=== PATIENT | female | born 1940 | race Caucasian/White ===

== ENCOUNTER → 2017-03-22 | Outpatient (CLI) | payer MEDICARE ==
[2014-12-22 10:32] VITALS: BMI 28.5
[~2017-03-22] MED LIST: ALPR-445 PO; ASPI81TA94 PO; ATOR40TA24 PO; AZIT-17 PO; BIOT1TAB12 PO; BLOO1STR16 MC; CALC-597 PO; CARV12.577 PO; CARV6.2574 PO; CEFU500T10 PO; CHOL200038 PO; CLOP75TA43 PO; DIPH0.5D12 IM; FURO-45 PO; FURO-47 PO; Furosemide PO; GLY5 PO; HYDR12.556 PO; INSU100I28 SQ; INSU100I30 SQ; INSU100I30 SUBQ; LEVO-85 PO; LISI-362 PO; LISI20TA29 PO; LISI5TAB25 PO; Lisinopril PO; METF-410 PO; METO25TA23 PO; MULT-820 PO; NEED-396 MC; NYST15PO12 TP; OMEG-11 PO; PANT40TA65 PO; PNEU0.5D3 IM; POLY17PO25 PO; Pantoprazole Sod PO; Polyethylene Glycol PO; SPIR25TA78 PO; Spironolactone PO; TAMS0.4C25 PO; TOLT4CAP13 PO; VITA-197 PO
[2017-03-22 09:12] LABS: LDL CHOLESTEROL 76 mg/dl
== END ==
LOC: LAB 08:44
PROVIDERS: ATTEND Internal Medicine
DX: E78.2 Mixed hyperlipidemia (principal); E11.65 Type 2 diabetes mellitus with hyperglycemia
CPT/HCPCS: 36415; 82040; 82247; 82310; 82374; 82435; 82465; 82565; 82947; 83036; 83718; 84075; 84132; 84155; 84295; 84450; 84460; 84478; 84520

== ENCOUNTER 2017-05-01 09:54 | Emergency (ER) | payer MEDICARE ==
[2014-12-22 10:32] VITALS: Wt 86.2 kg
--- NOTE | 2017-05-01 10:03 | ER Report ---
History and Physical Time Seen By MD: 10:02 HPI/ROS CHIEF COMPLAINT: Chest pain HISTORY OF PRESENT ILLNESS: Patient is a 76-year-old female who is brought to the emergency department with her for evaluation of anginal equivalent type symptoms that occurred last night but have resolved this morning. Patient is currently symptom and pain free at this time. She denies any chest pain or pressure she denies shortness of breath. She denies abdominal pain she denies fevers or chills. She denies any neck or shoulder pain currently. Patient last evening developed some right shoulder pain that radiated into the neck this is similar to prior symptoms the patient had over the past years, which apparently is her anginal equivalent. Patient was experiencing similar symptoms and in 2014 she ended up having a four-vessel bypass. Had non-ST elevation MIs in the past. She currently is going to cardiac rehabilitation therapy. Again at this time she denies any symptoms but because of the symptoms last evening patient presents for evaluation to the emergency department at this time. REVIEW OF SYSTEMS: Constitutional: No fever, no chills. Eyes: No discharge. ENT: No sore throat. Cardiovascular: No chest pain, no palpitations. Respiratory: No cough, no shortness of breath. Gastrointestinal: No abdominal pain, no vomiting. Genitourinary: No hematuria. Musculoskeletal: Patient with right shoulder pain that radiates to the neck currently the symptoms are not present Skin: No rashes. Neurological: No headache. Allergies: Coded Allergies: No Known Drug Allergies (Unverified , 05/01/17) Home Meds Active Scripts Insulin Glargine,Hum.rec.anlog (LANTUS SOLOSTAR) 100 Unit/1 Ml Insuln.pen, 48 UNIT SQ QDAY, #20 EA 3 Refills Use 27 units in the morning and 21 units in the evening Prov:YENNY BRIDGES MD 03/30/17 Atorvastatin Calcium (LIPITOR) 40 Mg Tablet, 1 TAB PO QDAY, #90 TAB 4 Refills 1 po q d, 5 days per week, skip 2 days Prov:YENNY BRIDGES MD 11/17/16 Furosemide (FUROSEMIDE) 40 Mg Tablet, 1 TAB PO DAILY, #90 TAB 3 Refills Prov:YENNY BRIDGES MD 09/29/16 Blood Sugar Diagnostic (FREESTYLE LITE TEST STRIPS) 1 Each Strip, 1 EACH MC TID , #250 STRIP 3 Refills Prov:YENNY BRIDGES MD 09/15/16 [place], Insulin Disposable (NOVOFINE) 1 Each Dis.needle, EACH MC QID, #1 11 Refills Use four times daily when injecting Lantus and Humalog Prov:STAN GARCIA PHARMJackie 09/02/16 Insulin Lispro 3 Ml Prefilled (HUMALOG 3 ML PEN) 100 Unit/1 Ml Insuln.pen, 5 UNIT SQ BIDLS, #1 BOX 5 Refills Prov:STAN GARCIA PHARMD 09/02/16 Tolterodine Tartrate (DETROL LA) 4 Mg Cap.er.24h, 1 CAP PO QDAY, #30 CAP 5 Refills Prov:YENNY BRIDGES MD 10/30/15 Lisinopril (LISINOPRIL) 20 Mg Tablet, 1 TAB PO QDAY, #90 TAB 4 Refills Prov:YENNY BRIDGES MD 07/26/15 Reported Medications Carvedilol (COREG) 12.5 Mg Tablet, 1 TAB PO BID, TAB 07/26/15 Aspirin (ASPIRIN) 81 Mg Tab.chew, 1 TAB PO QDAY, TAB.CHEW 01/09/15 Cholecalciferol (Vitamin D3) (VITAMIN D3) 2,000 Unit Tablet, 1 CAP PO QDAY 11/10/13 Calcium Carbonate/Vitamin D3 (CALCIUM 600 + VIT D TABLET) 1 Each Tablet, 1 TAB PO DAILY 11/10/13 Multivitamin (MULTIVITAMINS) 1 Each Tablet, 1 TAB PO QDAY 11/10/13 Discontinued Scripts Alprazolam 0.25 Mg (ALPRAZOLAM 0.25 MG) 0.25 Mg Tablet, 1 TAB PO TID Y for anxiety prior to flying, #4 TAB Prov:YENNY BRIDGES MD 10/30/15 Past Medical/Surgical History Pmhx: DM, cad, mi, htn, pcos, adrenal insufficiency, cystic fibrosis, hyperlipid , neruopathy, renal failure, MS Pshx; Cabg, hyster Hx Smoking: Yes Smoking Status: Former Smoker Exposure to Second Hand Smoke?: Yes Hx Substance Use Disorder: No Hx Alcohol Use: Yes Constitutional Vital Sign - Last 24 Hours 05/01/17 05/01/17 05/01/17 05/01/17 10:00 10:00 10:24 10:30 Temp 98.7 Pulse 73 73 Resp 17 25 B/P (MAP) 177/63 (101) 177/63 171/71 (104) Pulse Ox 90 92 O2 Delivery Room Air 05/01/17 05/01/17 05/01/17 05/01/17 10:54 11:00 11:30 11:35 Pulse 82 70 Resp 13 12 B/P (MAP) 184/62 (102) 168/70 (102) Pulse Ox 90 05/01/17 05/01/17 05/01/17 05/01/17 12:00 12:05 12:30 12:35 Pulse ??? 64 Resp 11 28 B/P (MAP) 119/51 (73) 136/59 (84) Pulse Ox 85 05/01/17 05/01/17 13:01 13:05 Pulse 68 Resp 10 B/P (MAP) 161/62 (95) Pulse Ox 90 Physical Exam General/Constitutional: Patient is awake, alert, nontoxic and in no acute respiratory distress. Head: Normocephalic and atraumatic. Eyes: Conjunctival clear, Pupils are equal and reactive to light. Sclera are clear and anicteric. Ears:External canals are clear. Tympanic membranes are clear with normal landmarks and light reflex. Nares: No rhinorrhea or bleeding. Turbinates are pink and moist. Oropharyngeal: Mucous membranes are moist. There is no pharyngeal erythema or exudate. Neck: Supple, no adenopathy. Cardiovascular: Heart is regular rate and rhythm without audible murmurs, rubs or gallops. Pulmonary: Lungs are clear to auscultation bilaterally. There are no wheezes, rales, or rhonchi. Chest rise is symmetrical Abdomen: Soft, nontender, no guarding or peritoneal signs. Extremities: No gross deformities, No peripheral cyanosis. Able to move all 4 extremities. Neuro: Alert and oriented X3, Skin: No rashes, skin is warm dry and well perfused. Medical Decision Making Data Points Result Diagram: 05/01/17 1003 05/01/17 1003 Laboratory Hematology Test 05/01/17 10:03 05/01/17 13:00 Red Blood Count 5.56 M/uL (4.17-5.56) Mean Corpuscular Volume 88.1 fL (80.0-96.0) Mean Corpuscular Hemoglobin 29.8 pg (26.0-33.0) Mean Corpuscular Hemoglobin Concent 33.9 g/dL (32.0-36.0) Red Cell Distribution Width 14.4 % (11.5-14.5) Mean Platelet Volume 9.4 fL (7.2-11.1) Neutrophils (%) (Auto) 75.2 % (39.4-72.5) Lymphocytes (%) (Auto) 12.7 % (17.6-49.6) Monocytes (%) (Auto) 9.6 % (4.1-12.4) Eosinophils (%) (Auto) 1.9 % (0.4-6.7) Basophils (%) (Auto) 0.6 % (0.3-1.4) Nucleated RBC Relative Count (auto) 0.0 /100WBC Neutrophils # (Auto) 7.0 K/uL (2.0-7.4) Lymphocytes # (Auto) 1.2 K/uL (1.3-3.6) Monocytes # (Auto) 0.9 K/uL (0.3-1.0) Eosinophils # (Auto) 0.2 K/uL (0.0-0.5) Basophils # (Auto) 0.1 K/uL (0.0-0.1) Nucleated RBC Absolute Count (auto) 0.00 K/uL Prothrombin Time 13.0 seconds (12.0-14.4) Prothromb Time International Ratio 0.98 Activated Partial Thromboplast Time 29 seconds (23-35) Sodium Level 140 mmol/L (137-145) Potassium Level 3.9 mmol/L (3.5-5.0) Chloride Level 99 mmol/L (98-107) Carbon Dioxide Level 28 mmol/L (22-31) Blood Urea Nitrogen 21 mg/dl (7-18) Creatinine 1.00 mg/dl (0.52-1.04) Glomerular Filtration Rate Calc 53.9 Random Glucose 174 mg/dl (75-110) Calcium Level 9.4 mg/dl (8.4-10.2) Total Bilirubin 0.8 mg/dl (0.2-1.3) Aspartate Amino Transf (AST/SGOT) 22 U/L (0-35) Alanine Aminotransferase (ALT/SGPT) 41 U/L (0-56) Alkaline Phosphatase 103 U/L (0-126) B-Type Natriuretic Peptide 325 pg/ml (0-100) Total Protein 7.5 gm/dl (6.3-8.2) Albumin 4.2 g/dl (3.5-5.0) Troponin I 0.017 ng/ml Chemistry Test 05/01/17 10:03 05/01/17 13:00 White Blood Count 9.3 k/uL (4.5-11.0) Red Blood Count 5.56 M/uL (4.17-5.56) Hemoglobin 16.6 g/dL (12.0-16.0) Hematocrit 49.0 % (34.0-47.0) Mean Corpuscular Volume 88.1 fL (80.0-96.0) Mean Corpuscular Hemoglobin 29.8 pg (26.0-33.0) Mean Corpuscular Hemoglobin Concent 33.9 g/dL (32.0-36.0) Red Cell Distribution Width 14.4 % (11.5-14.5) Platelet Count 157 K/uL (150-450) Mean Platelet Volume 9.4 fL (7.2-11.1) Neutrophils (%) (Auto) 75.2 % (39.4-72.5) Lymphocytes (%) (Auto) 12.7 % (17.6-49.6) Monocytes (%) (Auto) 9.6 % (4.1-12.4) Eosinophils (%) (Auto) 1.9 % (0.4-6.7) Basophils (%) (Auto) 0.6 % (0.3-1.4) Nucleated RBC Relative Count (auto) 0.0 /100WBC Neutrophils # (Auto) 7.0 K/uL (2.0-7.4) Lymphocytes # (Auto) 1.2 K/uL (1.3-3.6) Monocytes # (Auto) 0.9 K/uL (0.3-1.0) Eosinophils # (Auto) 0.2 K/uL (0.0-0.5) Basophils # (Auto) 0.1 K/uL (0.0-0.1) Nucleated RBC Absolute Count (auto) 0.00 K/uL Prothrombin Time 13.0 seconds (12.0-14.4) Prothromb Time International Ratio 0.98 Activated Partial Thromboplast Time 29 seconds (23-35) Glomerular Filtration Rate Calc 53.9 Calcium Level 9.4 mg/dl (8.4-10.2) Total Bilirubin 0.8 mg/dl (0.2-1.3) Aspartate Amino Transf (AST/SGOT) 22 U/L (0-35) Alanine Aminotransferase (ALT/SGPT) 41 U/L (0-56) Alkaline Phosphatase 103 U/L (0-126) B-Type Natriuretic Peptide 325 pg/ml (0-100) Total Protein 7.5 gm/dl (6.3-8.2) Albumin 4.2 g/dl (3.5-5.0) Troponin I 0.017 ng/ml Coagulation Test 05/01/17 10:03 Prothrombin Time 13.0 seconds Prothromb Time International Ratio 0.98 Activated Partial Thromboplast Time 29 seconds EKG/Imaging EKG Interpretation EKG shows normal sinus rhythm with ventricular rate of 74 bpm. There is some ST segment depression and T-wave abnormality in the lateral leads 1, aVL V5 and 6 there is no evidence of ST elevation. This was compared to an EKG from 2016 which shows no appreciable changes. Monitor Interpretation: Normal Sinus Rhythm ED Course/Re-evaluation Clinical Indication for ER IV: Hydration, IV Access ED Course 05/01/2017 10:27:47 am plan at this time will be cardiac workup including a BNP. Patient is symptom-free initial EKG does show some ST segment depression and T-wave abnormalities in 1, aVL, V5 and 6 however when compared to prior EKG this does not appear to be changed. Re-evaluation 05/01/2017 1:32:28 pm repeat enzyme test still remains negative. Plan will be disposition to home Decision to Disposition Date: May 01, 2017 Decision to Disposition Time: 13:32 Depart Departure Latest Vital Signs Vital Signs Date Time Temp Pulse Resp B/P (MAP) Pulse Ox O2 Delivery O2 Flow Rate FiO2 05/01/17 13:05 68 10 90 05/01/17 13:01 161/62 (95) 05/01/17 10:00 98.7 Room Air Impression: Primary Impression: Non-cardiac chest pain Condition: Improved Disposition: HOME OR SELF-CARE Referrals: YENNY BRIDGES MD (PCP) 1 Week Patient Instructions: Noncardiac Chest Pain (DC) Additional Instructions: Schedule follow-up with her primary care provider within the next week. Return to the emergency department if you develop again symptoms such as chest pain or pressure with or without shortness of breath pain into the back or pain into the shoulders or neck. CONRAD MACIAS MD May 01, 2017 10:03
[2017-05-01] MEDS ORDERED: ASPIRIN 81 MG CHEW PO ONE (10:05)
[2017-05-01 10:13] LABS: PLATELET COUNT, AUTOMATED 157 K/uL (150-450)
--- NOTE | 2017-05-01 10:19 | EKG ---
[place] [facility] [place] NAME: HARSH PANIAGUA : [id number] MR: [id number] V: [id number] EXAM DATE: ORDERING PHYSICIAN: CONRAD MACIAS TECHNOLOGIST: ROBERTO Garnett Reason : CHEST PAIN Blood Pressure : / mmHG Vent. Rate : 074 BPM Atrial Rate : 074 BPM P-R Int : 146 ms QRS Dur : 096 ms QT Int : 418 ms P-R-T Axes : 061 052 102 degrees QTc Int : 463 ms Normal sinus rhythm Possible Left atrial enlargement ST and T wave abnormality, consider lateral ischemia Prolonged QT Abnormal ECG When compared with ECG of 06-APR-2016 16:15, premature ventricular complexes are no longer present Nonspecific T wave abnormality no longer evident in Anterior leads Confirmed by SANAZ RODRIGUEZ ([id number]) on 05/01/2017 3:31:13 PM Referred By: GILBERTO Confirmed By:SANAZ RODRIGEUZ
[2017-05-01 10:22] LABS: INR 0.98
[2017-05-01] MEDS ORDERED: FUROSEMIDE 20 MG/2 ML VIAL IVP ONE (10:40)
--- NOTE | 2017-05-01 11:27 | RADIOLOGY IMAGING REPORT ---
FACILITY: [facility] - [place] PATIENT NAME: Estefania Lopez : 1940 MR: [id number] V: [id number] EXAM DATE: ORDERING PHYSICIAN: CONRAD MACIAS TECHNOLOGIST: Location: [facility] [place] Patient: Estefania Lopez : 1940 Visit/Account:[id number] Date of Sevice: 05/01/2017 CHEST SINGLE AP Indication: Chest pain. Comparison: December 21, 2014 Findings: Heart size within normal limits. There is no focal infiltrate or lobar consolidation. No pneumothorax or pleural effusion. IMPRESSION: 1. No acute cardiopulmonary process. Report Dictated By: Jung Flores MD at 05/01/2017 11:23 AM Report E-Signed By: Jung Flores MD at 05/01/2017 11:24 AM WSN:[id number]
[2017-05-01 13:01] VITALS: BP 161/62
== END 2017-05-01 13:45 | disposition home or self-care (01) ==
LOC: ER 09:57
DX: R07.89 Other chest pain (principal); I25.2 Old myocardial infarction; Z95.1 Presence of aortocoronary bypass graft; E11.9 Type 2 diabetes mellitus without complications; I25.10 Atherosclerotic heart disease of native coronary artery without angina pectoris; I10 Essential (primary) hypertension; E28.2 Polycystic ovarian syndrome; E84.9 Cystic fibrosis, unspecified; E78.5 Hyperlipidemia, unspecified; E11.40 Type 2 diabetes mellitus with diabetic neuropathy, unspecified; G35 Multiple sclerosis; Z87.891 Personal history of nicotine dependence; Z79.4 Long term (current) use of insulin
CPT/HCPCS: 36415; 71045; 83880; 84484; 85025; 85610; 85730; 93005; 96374; 99284; A9270; J1940; 82040; 82247; 82310; 82374; 82435; 82565; 82947; 84075; 84132; 84155; 84295; 84450; 84460; 84520

== ENCOUNTER → 2017-05-28 | Outpatient (CLI) | payer MEDICARE ==
[2014-12-22 10:32] VITALS: BMI 28.5
== END ==
LOC: LAB 10:32
PROVIDERS: ATTEND Pharmacist Pharmacotherapy
DX: E11.59 Type 2 diabetes mellitus with other circulatory complications (principal)
CPT/HCPCS: 36415; 83036

== ENCOUNTER → 2017-06-04 | Outpatient (CLI) | payer MEDICARE ==
[2014-12-22 10:32] VITALS: BMI 28.5
== END ==
LOC: LAB 08:41
PROVIDERS: ATTEND Internal Medicine
DX: I25.810 Atherosclerosis of coronary artery bypass graft(s) without angina pectoris (principal); I77.9 Disorder of arteries and arterioles, unspecified; I50.22 Chronic systolic (congestive) heart failure; I10 Essential (primary) hypertension; E11.9 Type 2 diabetes mellitus without complications; Z79.4 Long term (current) use of insulin
CPT/HCPCS: 36415; 82040; 82247; 82310; 82374; 82435; 82465; 82565; 82947; 83718; 84075; 84132; 84155; 84295; 84450; 84460; 84478; 84520

== ENCOUNTER → 2017-07-27 | Outpatient (CLI) | payer MEDICARE ==
[2014-12-22 10:32] VITALS: BMI 28.5
[~2017-07-27] MED LIST changes: -METF-410 PO; +METF-411 PO
== END ==
LOC: LAB 08:23
PROVIDERS: ATTEND Internal Medicine
DX: I25.810 Atherosclerosis of coronary artery bypass graft(s) without angina pectoris (principal)
CPT/HCPCS: 36415; 82040; 82247; 82310; 82374; 82435; 82465; 82565; 82947; 83718; 84075; 84132; 84155; 84295; 84450; 84460; 84478; 84520

== ENCOUNTER → 2017-07-27 | Outpatient (CLI) | payer MEDICARE ==
[2014-12-22 10:32] VITALS: BMI 28.5
[~2017-07-27] MED LIST changes: +EZET10TA41 PO; +OXYGENHOME INH
== END ==
LOC: LAB 08:38
PROVIDERS: ATTEND Internal Medicine
DX: Z02.9 Encounter for administrative examinations, unspecified (principal)

== ENCOUNTER → 2017-09-07 | Outpatient (CLI) | payer MEDICARE ==
[2014-12-22 10:32] VITALS: BMI 28.5
--- NOTE | 2017-09-07 10:22 | RADIOLOGY IMAGING REPORT ---
FACILITY: [facility] - [place] PATIENT NAME: Estefania Lopez : 1940 MR: [id number] V: [id number] EXAM DATE: ORDERING PHYSICIAN: SHARON VASQUEZ TECHNOLOGIST: Location: [facility] [place] Patient: Estefania Lopez : 1940 Visit/Account:[id number] Date of Sevice: 09/07/2017 ADDENDUM #1 Incidentally noted are multiple bilateral thyroid nodules for which thyroid ultrasound may be helpful . Report Dictated By: Yessi Miller MD at 09/07/2017 1:32 PM Report E-Signed By: Yessi Miller MD at 09/07/2017 1:32 PM ORIGINAL REPORT CAROTID HISTORY: Carotid disease COMPARISON: None. FINDINGS: Grayscale, duplex and color Doppler interrogation of the extracranial carotid and vertebral arteries was performed bilateral. On the right, peak systolic velocities within the common and internal carotid arteries are 127 and 10 5 cm/sec respectively. There are small to medium sized scattered hard plaques identified in the righ t common carotid artery. There is a small amount of hard and soft plaque right carotid bulb.. Anteg rade flow within the common, internal and external carotid arteries as well as vertebral artery. ICA/ CCA ratio 0.8. On the left, peak systolic velocities within the common and internal carotid arteries are 111 and 174 cm/sec respectively. Several small calcified plaques identified in the left common carotid artery. There is a moderate amount of hard and soft plaque at the left carotid bulb extending into the proxi mal left internal carotid artery.. Antegrade flow within the common, internal and external carotid a rteries as well as vertebral artery. ICA/CCA ratio 1.8. IMPRESSION: Scattered plaques identified in the common carotid arteries bilaterally and a small amount of plaque at the right carotid bulb although no hemodynamically significant lesions identified in the right int ernal carotid artery. Peak systolic velocity of the right carotid bulb is mildly elevated at 132 cm/ s Moderate amount of hard and soft plaque at the left carotid bulb extending into the proximal left int ernal carotid artery consistent with a 50-69% category stenosis Velocity criteria are extrapolated from diameter data as defined by the Society of Radiologists in Ul trasound Consensus Conference Radiology 2003; 229;340-346 Report Dictated By: Yessi Miller MD at 09/07/2017 10:15 AM Report E-Signed By: Yessi Miller MD at 09/07/2017 10:19 AM WSN:[email or web address]
== END ==
LOC: US 01:25
PROVIDERS: ATTEND Internal Medicine
DX: I77.9 Disorder of arteries and arterioles, unspecified (principal); E04.2 Nontoxic multinodular goiter
CPT/HCPCS: 93880

== ENCOUNTER → 2017-11-30 | Outpatient (CLI) | payer MEDICARE ==
[2014-12-22 10:32] VITALS: BMI 28.5
[~2017-11-30] MED LIST changes: -METF-411 PO; +METF-450 PO; -SPIR25TA78 PO; +SPIR25TA80 PO
[2017-11-30 10:28] LABS: LDL CHOLESTEROL 41 mg/dl
== END ==
LOC: LAB 07:43
PROVIDERS: ATTEND Internal Medicine
DX: E11.59 Type 2 diabetes mellitus with other circulatory complications (principal); E78.2 Mixed hyperlipidemia
CPT/HCPCS: 36415; 82040; 82247; 82310; 82374; 82435; 82465; 82565; 82947; 83036; 83718; 84075; 84132; 84155; 84295; 84450; 84460; 84478; 84520

== ENCOUNTER → 2017-11-30 | Outpatient (CLI) | payer MEDICARE ==
[2014-12-22 10:32] VITALS: BMI 28.5
== END ==
LOC: LAB 07:46
PROVIDERS: ATTEND Pharmacist Pharmacotherapy
DX: Z02.9 Encounter for administrative examinations, unspecified (principal)

== ENCOUNTER → 2018-01-05 | Outpatient (CLI) | payer MEDICARE ==
[2014-12-22 10:32] VITALS: BMI 28.5
[2018-01-05 10:23] LABS: LDL CHOLESTEROL 36 mg/dl
== END ==
LOC: LAB 09:01
PROVIDERS: ATTEND Internal Medicine
DX: I25.810 Atherosclerosis of coronary artery bypass graft(s) without angina pectoris (principal)
CPT/HCPCS: 36415; 82040; 82247; 82310; 82374; 82435; 82465; 82565; 82947; 83718; 84075; 84132; 84155; 84295; 84450; 84460; 84478; 84520

== ENCOUNTER → 2018-03-22 | Outpatient (CLI) | payer MEDICARE ==
[2014-12-22 10:32] VITALS: BMI 28.5
[2018-03-22 09:28] LABS: LDL CHOLESTEROL 59 mg/dl
== END ==
LOC: LAB 08:50
PROVIDERS: ATTEND Pharmacist Pharmacotherapy
DX: E11.59 Type 2 diabetes mellitus with other circulatory complications (principal); E78.2 Mixed hyperlipidemia
CPT/HCPCS: 36415; 82040; 82247; 82310; 82374; 82435; 82465; 82565; 82947; 83036; 83718; 84075; 84132; 84155; 84295; 84450; 84460; 84478; 84520

== ENCOUNTER → 2018-04-25 | Outpatient (CLI) | payer MEDICARE ==
[2014-12-22 10:32] VITALS: BMI 28.5
== END ==
LOC: AMB 16:53
PROVIDERS: ATTEND Nurse Practitioner
DX: E16.2 Hypoglycemia, unspecified (principal); R53.1 Weakness
CPT/HCPCS: A0998

== ENCOUNTER → 2018-05-09 | Outpatient (CLI) | payer MEDICARE ==
[2014-12-22 10:32] VITALS: BMI 28.5
[2018-05-09 08:58] LABS: INR 0.97
== END ==
LOC: LAB 08:34
PROVIDERS: ATTEND Pharmacist Pharmacotherapy
DX: Z51.81 Encounter for therapeutic drug level monitoring (principal); Z79.01 Long term (current) use of anticoagulants
CPT/HCPCS: 36415; 85610

== ENCOUNTER → 2018-05-10 | Outpatient (CLI) | payer MEDICARE ==
[2014-12-22 10:32] VITALS: BMI 28.5
== END ==
LOC: LAB 08:43
PROVIDERS: ATTEND Pharmacist Pharmacotherapy
DX: E11.9 Type 2 diabetes mellitus without complications (principal); Z79.4 Long term (current) use of insulin
CPT/HCPCS: 36415; 83036

== ENCOUNTER → 2018-06-07 | Outpatient (CLI) | payer MEDICARE ==
[2014-12-22 10:32] VITALS: BMI 28.5
[~2018-06-07] MED LIST changes: +CHOL100052 PO; +CYA1000 PO
[2018-06-07 12:05] LABS: PLATELET COUNT, AUTOMATED 183 K/uL (150-450)
== END ==
LOC: LAB 11:38
PROVIDERS: ATTEND Emergency Medicine
DX: G35 Multiple sclerosis (principal); R35.0 Frequency of micturition
CPT/HCPCS: 36415; 81001; 82306; 82607; 85025; 87088

== ENCOUNTER → 2018-07-25 | Outpatient (CLI) | payer MEDICARE ==
[2014-12-22 10:32] VITALS: BMI 28.5
[~2018-07-25] MED LIST changes: -DIPH0.5D12 IM; +DIPH0.5S2 IM; +SULF-198 PO
== END ==
LOC: LAB 14:15
PROVIDERS: ATTEND Emergency Medicine
DX: E11.9 Type 2 diabetes mellitus without complications (principal)
CPT/HCPCS: 36415; 83036

== ENCOUNTER 2018-08-22 17:13 | Emergency (ER) | payer MEDICARE ==
[2014-12-22 10:32] VITALS: Wt 90.7 kg
--- NOTE | 2018-08-22 17:41 | ER Report ---
History and Physical Time Seen By MD: 17:37 Hx. of Stated Complaint: BP TAKEN AROUND 4PM. REPORTS SYSTOLIC WAS OVER 200. HE GAVE DOSE OF LISINOPRIL (20MG) AT 4:30. PTS ALSO TOOK DOSE OF LISINOPRIL THIS AM HPI/ROS 78 YEAR OLD RECENT BYPASS. FOLLOWED BY CARDIOLOGY FROM [facility]. 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 TODAY NOT SYMPTOMATIC BUT HAD BP 200/P. TOOK ADDITIONAL LISINOPRIL AND BP 170/78 ON ARRIVAL Allergies: Coded Allergies: No Known Drug Allergies (Unverified , 05/01/17) Home Meds Active Scripts Sulfamethoxazole/Trimet 800-160 Mg Tab (BACTRIM DS TABLET) 1 Each Tablet, 1 TAB PO Q12H, #20 TAB Prov:MARCELO ROJAS MD 06/09/18 Insulin Lispro 100 Un/Ml Pen (HUMALOG 3 ML PEN) 100 Unit/1 Ml Insuln.pen, 5-7 UNIT SQ BIDLS, #1 BOX 1 Refill 5-7 units at lunch and supper ONLY Prov:MARCELO ROJAS MD 06/07/18 Furosemide (FUROSEMIDE) 40 Mg Tablet, 1.5-2 TAB PO QWEEK, #90 TAB 2 Refills Prov:MARCELO ROJAS MD 06/07/18 Lisinopril (LISINOPRIL) 20 Mg Tablet, 1 TAB PO QDAY, #90 TAB 0 Refills Prov:YENNY BRIDGES MD 04/18/18 Atorvastatin Calcium (LIPITOR) 40 Mg Tablet, 0.5 TAB PO QDAY, #90 TAB 4 Refills 1 po q d, 5 days per week, skip 2 days Prov:YENNY BRIDGES MD 04/05/18 Insulin Glargine 100 Un/Ml Pen (LANTUS SOLOSTAR PEN) 100 Unit/1 Ml Insuln.pen, 48 UNIT SQ QDAY, #20 EA 2 Refills Use 27 units in the morning and 21 units in the evening Prov:YENNY BRIDGES MD 01/31/18 Blood Sugar Diagnostic (FREESTYLE LITE TEST STRIPS) 1 Each Strip, 1 EACH MC TID, #300 STRIP 2 Refills Prov:YENNY BRIDGES MD 11/15/17 [place], Insulin Disposable (NOVOFINE) 1 Each Dis.needle, EACH MC QID, #1 11 Refills Use four times daily when injecting Lantus and Humalog Prov:STAN GARCIA PHARMD 09/02/16 Reported Medications Cyanocobalamin (Vitamin B-12) (VITAMIN B-12) 1,000 Mcg Tablet, 1000 MCG PO 3XW 06/07/18 Cholecalciferol (Vitamin D3) (VITAMIN D) 1,000 Unit Tablet, 1000 UNIT PO DAILY 06/07/18 Oxygen (OXYGEN) Inha, 2.5 L INH HS, L 07/29/17 Ezetimibe (ZETIA) 10 Mg Tablet, 1 TAB PO QDAY, TAB 07/29/17 Carvedilol (COREG) 12.5 Mg Tablet, 1 TAB PO BID, TAB 07/26/15 Aspirin (ASPIRIN) 81 Mg Tab.chew, 1 TAB PO QDAY, TAB.CHEW 01/09/15 Calcium Carbonate/Vitamin D3 (CALCIUM 600 + VIT D TABLET) 1 Each Tablet, 1 TAB PO DAILY 11/10/13 Multivitamin (MULTIVITAMINS) 1 Each Tablet, 1 TAB PO QDAY 11/10/13 Past Medical/Surgical History DM, HTN, OBESITY, Reviewed Nurses Notes: Yes Old Medical Records Reviewed: Yes Hx Smoking: Yes Smoking Status: Former Smoker Exposure to Second Hand Smoke?: Yes Hx Substance Use Disorder: No Hx Alcohol Use: Yes Constitutional Vital Sign - Last 24 Hours 08/22/18 08/22/18 08/22/18 08/22/18 17:13 17:24 17:25 17:30 Temp 97.7 Pulse ??? 69 Resp 18 B/P (MAP) 179/67 (104) 179/67 162/72 (102) Pulse Ox 87 O2 Delivery Room Air 08/22/18 08/22/18 08/22/18 08/22/18 17:43 17:51 18:00 18:13 Pulse 65 58 Resp 15 20 B/P (MAP) 167/133 (144) 153/64 (93) Pulse Ox 94 96 08/22/18 18:20 B/P (MAP) 160/65 (96) Physical Exam 78 YEAR OLD FEMALE ALERT AND ANXIOUS, TM NON REDDENED, THROAT NON REDDENED, HRR, LUNGS CTA, ABD OBESE, EDEMA 2 PLUS LLE 1 PLUS RLE Medical Decision Making Data Points Result Diagram: 08/22/18 1743 08/22/18 174 Laboratory Hematology Test 08/22/18 17:43 08/22/18 17:47 Red Blood Count 5.33 M/uL (4.17-5.56) Mean Corpuscular Volume 88.5 fL (80.0-96.0) Mean Corpuscular Hemoglobin 30.2 pg (26.0-33.0) Mean Corpuscular Hemoglobin Concent 34.1 g/dL (32.0-36.0) Red Cell Distribution Width 15.3 % (11.5-14.5) Mean Platelet Volume 8.8 fL (7.2-11.1) Neutrophils (%) (Auto) 58.9 % (39.4-72.5) Lymphocytes (%) (Auto) 27.2 % (17.6-49.6) Monocytes (%) (Auto) 10.0 % (4.1-12.4) Eosinophils (%) (Auto) 3.0 % (0.4-6.7) Basophils (%) (Auto) 0.9 % (0.3-1.4) Nucleated RBC Relative Count (auto) 0.0 /100WBC Neutrophils # (Auto) 4.1 K/uL (2.0-7.4) Lymphocytes # (Auto) 1.9 K/uL (1.3-3.6) Monocytes # (Auto) 0.7 K/uL (0.3-1.0) Eosinophils # (Auto) 0.2 K/uL (0.0-0.5) Basophils # (Auto) 0.1 K/uL (0.0-0.1) Nucleated RBC Absolute Count (auto) 0.00 K/uL Sodium Level 141 mmol/L (137-145) Potassium Level 3.8 mmol/L (3.5-5.0) Chloride Level 106 mmol/L (98-107) Carbon Dioxide Level 26 mmol/L (22-31) Blood Urea Nitrogen 27 mg/dl (7-18) Creatinine 1.00 mg/dl (0.52-1.04) Glomerular Filtration Rate Calc 53.6 Random Glucose 62 mg/dl (75-110) Calcium Level 9.2 mg/dl (8.4-10.2) Magnesium Level 2.3 mg/dl (1.7-2.2) Total Bilirubin 0.4 mg/dl (0.2-1.3) Aspartate Amino Transf (AST/SGOT) 25 U/L (0-35) Alanine Aminotransferase (ALT/SGPT) 41 U/L (0-56) Alkaline Phosphatase 89 U/L (0-126) B-Type Natriuretic Peptide 128 pg/ml (0-100) Total Protein 6.9 g/dl (6.3-8.2) Albumin 4.0 g/dl (3.5-5.0) Whole Blood Glucose 62 mg/DL (75-110) Chemistry Test 08/22/18 17:43 08/22/18 17:47 White Blood Count 7.0 k/uL (4.5-11.0) Red Blood Count 5.33 M/uL (4.17-5.56) Hemoglobin 16.1 g/dL (12.0-16.0) Hematocrit 47.2 % (34.0-47.0) Mean Corpuscular Volume 88.5 fL (80.0-96.0) Mean Corpuscular Hemoglobin 30.2 pg (26.0-33.0) Mean Corpuscular Hemoglobin Concent 34.1 g/dL (32.0-36.0) Red Cell Distribution Width 15.3 % (11.5-14.5) Platelet Count 153 K/uL (150-450) Mean Platelet Volume 8.8 fL (7.2-11.1) Neutrophils (%) (Auto) 58.9 % (39.4-72.5) Lymphocytes (%) (Auto) 27.2 % (17.6-49.6) Monocytes (%) (Auto) 10.0 % (4.1-12.4) Eosinophils (%) (Auto) 3.0 % (0.4-6.7) Basophils (%) (Auto) 0.9 % (0.3-1.4) Nucleated RBC Relative Count (auto) 0.0 /100WBC Neutrophils # (Auto) 4.1 K/uL (2.0-7.4) Lymphocytes # (Auto) 1.9 K/uL (1.3-3.6) Monocytes # (Auto) 0.7 K/uL (0.3-1.0) Eosinophils # (Auto) 0.2 K/uL (0.0-0.5) Basophils # (Auto) 0.1 K/uL (0.0-0.1) Nucleated RBC Absolute Count (auto) 0.00 K/uL Glomerular Filtration Rate Calc 53.6 Calcium Level 9.2 mg/dl (8.4-10.2) Magnesium Level 2.3 mg/dl (1.7-2.2) Total Bilirubin 0.4 mg/dl (0.2-1.3) Aspartate Amino Transf (AST/SGOT) 25 U/L (0-35) Alanine Aminotransferase (ALT/SGPT) 41 U/L (0-56) Alkaline Phosphatase 89 U/L (0-126) B-Type Natriuretic Peptide 128 pg/ml (0-100) Total Protein 6.9 g/dl (6.3-8.2) Albumin 4.0 g/dl (3.5-5.0) Whole Blood Glucose 62 mg/DL (75-110) EKG/Imaging EKG Interpretation EKG UNCHANGED FROM EKG MAY 01 2017 ED Course/Re-evaluation ED Course Patient's blood sugar was 63 and arrival has been status he's been up changing her insulin dose by 3 units we did give her a snack blood sugar was stabilized and feels much better her blood pressure in the emergency room has stabilized at 160/65 patient is asymptomatic chest x-ray lab work EKG are within patient's normal ranges we'll send her home with close follow-up with her physician Re-evaluation NO SYMPTOMS ON DC. VSS 160/65, Decision to Disposition Date: Aug 22, 2018 Decision to Disposition Time: 18:43 Depart Departure Latest Vital Signs Vital Signs Date Time Temp Pulse Resp B/P (MAP) Pulse Ox O2 Delivery O2 Flow Rate FiO2 08/22/18 18:20 160/65 (96) 08/22/18 18:13 58 20 96 08/22/18 17:25 97.7 Room Air Impression: Primary Impression: Chronic systolic (congestive) heart failure Additional Impressions: Coronary artery disease HTN (hypertension) Condition: Improved Disposition: HOME OR SELF-CARE Referrals: MARCELO ROJAS MD (PCP) 2 Days Patient Instructions: Hypertension (ED) Additional Instructions: Please call your queen producer tomorrow to make sure you're on the right hypertension medication dosage, see your primary care physician for follow-up in the next 2-3 days, return to the emergency room for any problems or concerns Problem Qualifiers RADHA HARRISON Aug 22, 2018 17:41
[2018-08-22 17:56] LABS: PLATELET COUNT, AUTOMATED 153 K/uL (150-450)
--- NOTE | 2018-08-22 17:59 | EKG ---
[place] [facility] [place] NAME: HARSH PANIAGUA : [id number] MR: [id number] V: [id number] EXAM DATE: ORDERING PHYSICIAN: RADHA HARRISON TECHNOLOGIST: TIP Test Reason : HYPERTENSIVE Blood Pressure : / mmHG Vent. Rate : 060 BPM Atrial Rate : 060 BPM P-R Int : 158 ms QRS Dur : 100 ms QT Int : 464 ms P-R-T Axes : 068 006 099 degrees QTc Int : 464 ms Sinus rhythm Probable left atrial enlargement Nonspecific ST findings inferiorly Abnormal ECG Confirmed by CARMELITA DANIELSON ([id number]) on 08/22/2018 9:23:35 PM Referred By: CHRISTY Confirmed By:CARMELITA DANIELSON
[2018-08-22 18:20] VITALS: BP 160/65
--- NOTE | 2018-08-22 18:34 | RADIOLOGY IMAGING REPORT ---
[place] [facility] [place] NAME: Estefania Lopez : 1940 MR: [id number] V: [id number] EXAM DATE: ORDERING PHYSICIAN: RADHA HARRISON TECHNOLOGIST: Location: [facility] Patient: Estefania Lopez : 1940 Visit/Account:[id number] Date of Sevice: 08/22/2018 Examination: CHEST SINGLE AP Comparison: 05/01/2017 and earlier. History: Chest pain and high blood pressure. Findings: Cardiac and hilar contour size is within normal limits and unchanged. Sternotomy and cantu ry artery bypass. Chronic interstitial prominence. No new or enlarging consolidation, nodule, or evidence of acute silver bronchial inflammation. No pneumothorax, edema, or effusion. Osseous structures are intact. IMPRESSION: No findings of acute cardiopulmonary disease. Report Dictated By: Quang Montiel MD at 08/22/2018 6:27 PM Report E-Signed By: Quang Montiel MD at 08/22/2018 6:29 PM WSN:[id number]
== END 2018-08-22 18:53 | disposition home or self-care (01) ==
LOC: ER 17:20
DX: I50.22 Chronic systolic (congestive) heart failure (principal); I25.10 Atherosclerotic heart disease of native coronary artery without angina pectoris; I10 Essential (primary) hypertension
CPT/HCPCS: 36416; 71045; 82040; 82247; 82310; 82374; 82435; 82565; 82947; 82948; 83735; 83880; 84075; 84132; 84155; 84295; 84450; 84460; 84520; 85025; 93005; 99284